=== PATIENT | male | born 1980 | race Hispanic/Latino ===

== ENCOUNTER 2018-01-18 14:01 | Observation (INO) | payer SELFPAY ==
[~2018-01-18 14:01] MED LIST: ISOVUE-370 76%-LOCM 1 ML ONE
[2018-01-18] MEDS ORDERED: Lorazepam 2 MG/ML VIAL ONE (14:40)
[2018-01-18 14:46] LABS: #Lymphocytes 2.2 thou/uL (1.20-3.40); #Monocytes 0.5 thou/uL (0.11-0.59); #Neutrophils 5.1 thou/uL (1.40-6.50); %Basophils 0.3 % (0.0-1.0); %Eosinophils 0.5 % (0.0-10.0); %Lymphocytes 27.8 % (21.0-51.0); %Neutrophils 65.5 % (42.0-75.0); Hemoglobin 15.7 g/dL (14.0-18.0); Mean Corpuscular HGB CONC 34.5 g/dL (32.0-36.0); Mean Corpuscular Hemoglobin 31.4 pg (27.0-31.0); Mean Corpuscular Volume 91.1 fl (80.0-94.0); Mean Platelet Volume 7.6 fL (7.4-10.4); Platelet Count 197 thou/uL (130-400); RBC Distribution Width 11.5 % (11.5-14.5); Red Blood Cell (RBC) Count 5.01 mill/uL (4.70-6.10); White Blood Cell (WBC) Count 7.8 thou/uL (4.8-10.8)
[2018-01-18 14:48] LABS: Bilirubin Negative (Negative); Blood, Urine Negative (Negative); Clarity CLEAR (Clear); Glucose, Urine (Dipstick) >=1000 mg/dL (Negative); Leukocyte Negative (Negative); Nitrite Negative (Negative); Protein, Urine (Dipstick) Negative (Neg-Trace); Specific Gravity, Urine 1.035 (1.002-1.036); Urobilinogen 0.2 mg/dL (0.2-1.0)
[2018-01-18 14:54] LABS: ALT (SGPT) 210 U/L (8-55); AST (SGOT) 106 U/L (5-34); Albumin 4.3 g/dL (3.5-5.0); Alkaline Phosphatase 176 U/L (40-150); Anion Gap 18 mmol/L (10-20); BUN (Urea Nitrogen) 11 mg/dL (8.9-20.6); Bilirubin, Total 0.5 mg/dL (0.2-1.2); CK (CPK) 77 U/L (30-200); Calc. Creatinine Clearance 0 mL/min (70-130); Calcium 9.4 mg/dL (7.8-10.44); Carbon Dioxide 23 mmol/L (22-29); Chloride 98 mmol/L (98-107); Estimated GFR-MDRD 88; Globulin 4.1 g/dL (2.4-3.5); Glucose 502 mg/dL (70-105); Potassium 3.9 mmol/L (3.5-5.1); Protein, Total 8.4 g/dL (6.0-8.3); Sodium 135 mmol/L (136-145)
[2018-01-18 14:59] LABS: CKMB 0.7 ng/mL (0-6.6); Troponin I Less than 0.010 ng/mL (< 0.028)
[2018-01-18] MEDS ORDERED: Insulin Regular 300 UNITS/3 ML VIAL ONE (16:04)
--- NOTE | 2018-01-18 16:40 | RAD ---
PORTABLE CHEST 1 VIEW: Date: 01/18/18 Time: 1512 hours HISTORY: Chest pain. FINDINGS: The cardiomediastinum is normal. The lungs are clear. The bony thorax is unremarkable. IMPRESSION: Normal exam. POS: [facility]
[2018-01-18] MEDS ORDERED: Acetaminophen 650 MG Suppository PR PRN (18:29)
[2018-01-18] MEDS ORDERED: Nitroglycerin 0.4 MG TAB (25 Tab Bottle) PO PRN (18:29)
[2018-01-18] MEDS ORDERED: Bisacodyl 5 MG TAB PO PRN (18:29)
[2018-01-18] MEDS ORDERED: Acetaminophen 325 MG TAB PO PRN ×2 (18:29→18:47)
[2018-01-18] MEDS ORDERED: HumaLOG 300 UNITS/3 ML VIAL SC PRN (18:29)
[2018-01-18] MEDS ORDERED: Dextrose 50% Abboject 50 ML SYRINGE SLOW IVP PRN (18:29)
[2018-01-18] MEDS ORDERED: Dextrose 5% in Water 1,000 ML IV PRN (18:29)
[2018-01-18] MEDS ORDERED: Ondansetron PF 4 MG/2 ML Vial IVP PRN (18:47)
[2018-01-18] MEDS ORDERED: Ondansetron ODT 4 MG TAB SL PRN (18:47)
[2018-01-18 18:52] LABS: Hemoglobin A1c 13.6 % (4.0-6.0)
--- NOTE | 2018-01-18 19:02 | HP ---
PRIMARY CARE PROVIDER: None. CHIEF COMPLAINT: Chest pain. HISTORY OF PRESENT ILLNESS: Mr. Neena Fernández is a pleasant 38-year-old gentleman who was seen at [facility] on 01/18/2018. He reports that yesterday he developed left-sided ches t pain. He describes it as a pressure-like sensation, total 2/10, accompanied by shortness of breath , on and off, no known aggravating or relieving factor, nonexertional and nonpleuritic. He denies thomas ving similar chest pain in the past. He denies having any cough, fevers, chills, lightheadedness, na usea or vomiting. He is a diabetic and was previously on metformin, but stopped because he could not afford the medicat ions. REVIEW OF SYSTEMS: The following complete review of systems was negative, unless otherwise mentioned in the HPI or below: Constitutional: Weight loss or gain, ability to conduct usual activities. Skin: Rash, itching. Eyes: Double vision, pain. ENT/Mouth: Nose bleeding, neck stiffness, pain, tenderness. Cardiovascular: Palpitations, dyspnea on exertion, orthopnea. Respiratory: Shortness of breath, wheezing, cough, hemoptysis, fever or night sweats. Gastrointestinal: Poor appetite, abdominal pain, heartburn, nausea, vomiting, constipation, or diarrhea. Genitourinary: Urgency, frequency, dysuria, nocturia. Musculoskeletal: Pain, swelling. Neurologic/Psychiatric: Anxiety, depression. Allergy/Immunologic: Skin rash, bleeding tendency. PAST MEDICAL HISTORY: Diabetes mellitus. PAST SURGICAL HISTORY: None. SOCIAL HISTORY: The patient denies tobacco use, alcohol use or recreational drug use. FAMILY HISTORY: Significant for myocardial infarction in his brother. ALLERGIES: No known drug allergies. CURRENT MEDICATIONS: None. PHYSICAL EXAMINATION: GENERAL: Mr. Neena Fernández is awake and alert, not in acute distress. VITAL SIGNS: Blood pressure is 159/101, pulse is 108, his breathing at rate of 10 and saturating 99% on room air. He is afebrile. EYES: No scleral icterus. No conjunctival pallor. ENT: Moist mucosal membranes, no oropharyngeal erythema or exudates. NECK: Supple, nontender, normal range of movement. Trachea is midline. RESPIRATORY: Accessory muscles of breathing are not active. Chest wall movements are symmetric bila terally. LUNGS: Clear to auscultation without wheeze, rhonchi or crepitations. CARDIOVASCULAR: S1 and S2 are heard, regular. Peripheral pulses palpable. No pericardial rub. No carotid bruit. ABDOMEN: Soft, nontender, bowel sounds are heard, no hepatomegaly, no splenomegaly. NEUROLOGIC: Cranial nerves II-XII intact. Deep tendon reflexes 2+. MUSCULOSKELETAL: Power is 5/5 in all 4 extremities. Normal range of movement at all major extremity joints. PSYCHIATRIC: Normal mood and normal affect, the patient is oriented to person, place and time. LYMPHATIC: No cervical lymphadenopathy. SKIN: No rashes or subcutaneous nodules. LABORATORY DATA: Mr. Neena Fernández's labs and investigations were reviewed. I reviewed his electroca rdiogram, which shows sinus tachycardia. I also reviewed his chest x-ray, which does not show any pu lmonary infiltrates. He has an unremarkable CBC, decreased sodium of 135, normal potassium, normal c reatinine, elevated AST of 106, elevated ALT of 210, elevated alkaline phosphatase of 176, normal tot al bilirubin, normal creatinine kinase, troponin I less than 0.010, elevated serum total protein of 8 .4, normal albumin of 4.3, urinalysis is positive for glucose and trace ketones, and toxicology showi ng mildly elevated beta hydroxybutyrate. ASSESSMENT AND PLAN: Mr. Neena Fernández is a pleasant 38-year-old gentleman who was seen at [facility] on 01/18/2018. His problem list includes: 1. Chest pain: The etiology is unclear. He has significant risk factors for acute coronary syndrom e. He will be admitted to the hospital and monitored on telemetry. We will recheck his troponin. H is first troponin I is normal. 2. Sinus tachycardia: He continues to have sinus tachycardia. We will rule out pulmonary embolism with CT angiogram of the chest. 3. Abnormal liver function tests. Recheck liver profile, check abdominal ultrasound. 4. Diabetes mellitus. The patient is noncompliant. Start him on Accu-Cheks, insulin sliding scale, glyburide. Many thanks for allowing me to participate in your patient's care. Please feel free to contact me wi th any questions or concerns. LEVEL OF RISK: High. LEVEL OF COMPLEXITY: High.
[2018-01-18] MEDS ORDERED: FLU VACC QS2017-18 36 mo. & older 0.5 ML SYRINGE IM ONE (19:30)
[2018-01-18 19:31] LABS: Troponin I Less than 0.010 ng/mL (< 0.028)
--- NOTE | 2018-01-18 20:12 | CT ---
CT ANGIO CHEST WITH IV CONTRAST: Date: 01/18/18 Multiple axial tomograms obtained through chest with pulmonary angio enhancement and protocol with mu ltiplanar reconstruction and 3D postprocessing. HISTORY: Right chest pain. Shortness of breath. FINDINGS: Pulmonary arteries show suboptimal opacification. There is no evidence of proximal pulmonary embolus. Subsegmental emboli cannot be excluded on this study. No evidence of thoracic aortic dissection. Mediastinum is unremarkable. The lung butler are clear. No infiltrate or effusion. IMPRESSION: Suboptimal pulmonary angio study due to suboptimal opacification of pulmonary arteries. No large prox imal embolus identified on this exam. If there is strong clinical suspicion, consider further evaluat ion with VQ scan. POS: [facility]
[2018-01-18] MEDS: Sodium Chloride 0.9% 1,000 ML IV SCH (21:01)
[2018-01-18 21:18] VITALS: BMI 27.7
[2018-01-18 22:32] LABS: Troponin I Less than 0.010 ng/mL (< 0.028)
[2018-01-19 04:55] LABS: #Basophils 0.1 thou/uL (0.0-0.2); #Eosinphils 0.1 thou/uL (0.0-0.7); #Lymphocytes 2.4 thou/uL (1.20-3.40); #Monocytes 0.5 thou/uL (0.11-0.59); #Neutrophils 3.4 thou/uL (1.40-6.50); %Basophils 0.9 % (0.0-1.0); %Eosinophils 0.8 % (0.0-10.0); %Lymphocytes 37.2 % (21.0-51.0); %Monocytes 8.4 % (0.0-10.0); %Neutrophils 52.7 % (42.0-75.0); Hemoglobin 13.8 g/dL (14.0-18.0); Mean Corpuscular HGB CONC 34.5 g/dL (32.0-36.0); Mean Corpuscular Hemoglobin 31.5 pg (27.0-31.0); Mean Corpuscular Volume 91.5 fl (80.0-94.0); Mean Platelet Volume 7.4 fL (7.4-10.4); Platelet Count 184 thou/uL (130-400); RBC Distribution Width 11.3 % (11.5-14.5); Red Blood Cell (RBC) Count 4.39 mill/uL (4.70-6.10); White Blood Cell (WBC) Count 6.5 thou/uL (4.8-10.8)
[2018-01-19 05:09] LABS: Anion Gap 12 mmol/L (10-20); BUN (Urea Nitrogen) 8 mg/dL (8.9-20.6); Calc. Creatinine Clearance 143 mL/min (70-130); Calcium 8.5 mg/dL (7.8-10.44); Carbon Dioxide 25 mmol/L (22-29); Chloride 102 mmol/L (98-107); Estimated GFR-MDRD Greater than 90; Glucose 315 mg/dL (70-105); Potassium 3.2 mmol/L (3.5-5.1); Sodium 136 mmol/L (136-145)
[2018-01-19 05:12] LABS: ALT (SGPT) 144 U/L (8-55); AST (SGOT) 45 U/L (5-34); Albumin 3.7 g/dL (3.5-5.0); Alkaline Phosphatase 115 U/L (40-150); Bilirubin, Direct 0.3 mg/dL (0.1-0.3); Protein, Total 6.6 g/dL (6.0-8.3)
[2018-01-19] MEDS ORDERED: metFORMIN 500 MG TAB PO SCH (08:00)
[2018-01-19] MEDS ORDERED: glyBURIDE 5 MG TAB PO SCH (08:00)
[2018-01-19] MEDS ORDERED: Enoxaparin Sodium 40 MG/0.4 ML SYRINGE SC SCH (09:00)
[2018-01-19] MEDS ORDERED: Aspirin 325 MG TAB PO SCH (09:00)
--- NOTE | 2018-01-19 09:33 | ULT ---
ULTRASOUND ABDOMEN: Date 01/19/18 HISTORY: Abnormal LFTs. FINDINGS: The liver echogenicity is mildly inhomogeneous and mildly increased, likely due to mild fatty infiltr ation. No focal mass or intrahepatic ductal dilatation is seen. No shadowing gallstones, gallbladder wall thickening, or pericholecystic fluid is identified. There is 5.0 mm nonshadowing echogenic focus arising from the wall of the gallbladder without mobility. The common duct measures 4.0 mm in diamet er. The spleen, pancreas, kidneys, and visualized portions of the aorta and IVC appear normal. No cesar e fluid is seen. IMPRESSION: 1. Fatty liver. 2. Gallbladder polyp. POS: [facility]
[2018-01-19] MEDS: Sodium Chloride 0.9% 1,000 ML IV SCH (11:49)
[2018-01-19 12:04] VITALS: BP 172/107; TEMP 98
[2018-01-19] MEDS ORDERED: Potassium Chloride 20 MEQ TAB PO SCH (13:15)
--- NOTE | 2018-01-19 13:27 | DIS ---
DATE OF ADMISSION: 01/18/2018 DATE OF DISCHARGE: 01/19/2018 PRIMARY CARE PROVIDER: None. DISCHARGE DIAGNOSES: 1. Chest pain. 2. Poorly controlled diabetes mellitus. 3. Abnormal liver function tests, improved. CONDITION OF PATIENT AT THE TIME OF DISCHARGE: Stable. I assessed Mr. Neena Fernández on the day of schar. He denies any chest pain or shortness of breath. Vital signs are stable. S1 and S2 are he tania, regular. Lungs are clear to auscultation bilaterally. HOSPITAL COURSE: Mr. Neena Fernández was admitted to [facility] on observation s tatus on 01/18/2018 for chest discomfort. He also had an elevated D-dimer. CT angiogram of [facility] t on 01/18/2018 was suboptimal pulmonary angio study. No large proximal embolus was identified on th e exam. He went onto have a nuclear stress test on 01/19/2018. Preliminary report indicates a vickie l stress test with ejection fraction of 70%. He also had poorly controlled diabetes mellitus secondary to noncompliance with medications. Hemoglo bin A1c during this hospitalization was 13.6. He has been started on glyburide and metformin. He also had abnormal liver function test, which improved by the day of discharge. He had an abdomina l ultrasound which showed gallbladder polyp and fatty liver. He continued to improve clinically. Chest pain resolved. He is being discharged home in stable cond ition and advised to follow up with primary care provider in 3-5 days. DISCHARGE MEDICATIONS: Include glyburide 5 mg daily and metformin 500 mg 2 times a day to be started on 01/21/2018. LABORATORY DATA: On the day of discharge, he has sodium 136, potassium 3.2, which is being replaced, total bilirubin 1.0, AST 45 decreased from 106 from previous day. ALT 144, decreased from 210 the p revious day, normal alkaline phosphatase of 115, decreased from 176 on 01/18/2018, white count 6,500, hemoglobin 13.8, and platelet count 184,000. DISCHARGE DESTINATION: Home.
--- NOTE | 2018-01-19 14:42 | NM ---
NUCLEAR MEDICINE CARDIAC STRESS TEST WITH EJECTION FRACTION: HISTORY: Chest pain. TECHNIQUE: Stress and rest was performed after the intravenous administration of 31 and 9.1 mCi technetium-99m s estamibi intravenously, respectively. FINDINGS: No scar or ischemia. Normal wall motion. No dyskinesia. Normal ejection fraction calculated at 70%. IMPRESSION: Normal nuclear medicine cardiac stress test and ejection fraction. POS: [facility]
[2018-01-19] MEDS ORDERED: Regadenoson 0.4 MG/5 ML SYRINGE ONE (15:24)
--- NOTE | 2018-01-24 13:22 | EKG ---
Test Reason : Blood Pressure : / mmHG Vent. Rate : 114 BPM Atrial Rate : 114 BPM P-R Int : 158 ms QRS Dur : 084 ms QT Int : 334 ms P-R-T Axes : 060 -50 040 degrees QTc Int : 460 ms Sinus tachycardia Possible Left atrial enlargement Left axis deviation Pulmonary disease pattern Abnormal ECG Confirmed by ARLETTE GOLDSMITH ([id number]), editor publications JENNIFER NGUYEN ([id number]) on 01/24/2018 1:22:34 PM Referred By: Confirmed By:ARLETTE GOLDSMITH
--- NOTE | 2018-03-03 13:36 | STRESS ---
Acquisition Time: 2018-01-19 09:58:12 Total Exercise Time: 00:01:00 Test Indications: CHEST PAIN Medications: Protocol: LEXISCAN Max HR: 131 BPM 71% of Pred: 182 BPM Max BP: 156/082 mmHG Max Work Load: 1.0 METS RESTING ECG: NORMAL SINUS RHYTHM AT 64 BPM SYMPTOMS: CHEST PAIN, DYSPNEA, HEADACHE NORMAL BP RESPONSE ECTOPY: NONE ECG STRESS: NO SIGNIFICANT CHANGES INTERPRETATION: INDETEMINATE ECG/AWAIT NUCLEAR IMAGES FOR DEFINITIVE DIAGNOSIS COMMENTS: DIFFUSE T-WAVE INVERSION WITH LEXISCAN INFUSION Confirmed by GARFIELD OMNROY ([id number]) on 03/03/2018 1:35:52 PM Referred By: MD Elsy GUEVARA Confirmed By:GARFIELD MONROY
== END 2018-01-19 15:13 | disposition home or self-care (01) ==
LOC: ERS 14:01 → 2SW 18:47
PROVIDERS: ADMIT Internal Medicine; ATTEND Internal Medicine
DX: R07.89 Other chest pain (principal); E11.65 Type 2 diabetes mellitus with hyperglycemia; R94.5 Abnormal results of liver function studies; R00.0 Tachycardia, unspecified; Z91.14 Patient's other noncompliance with medication regimen; Z82.49 Family history of ischemic heart disease and other diseases of the circulatory system
CPT/HCPCS: 36415; 36416; 71045; 71275; 76700; 78452; 80048; 80053; 80076; 81003; 82010; 82550; 82553; 83036; 84484; 85025; 85379; 90471; 90682; 90732; 93005; 93017; 96361; 96372; 96374; A9500; G0008; G0009; G0378; J1650; J1815; J2060; J2785; Q2036

== ENCOUNTER 2020-01-16 14:00 | Emergency (ER) | payer SELFPAY ==
--- NOTE | 2020-01-16 14:40 | RAD ---
EXAM: Chest one view: HISTORY: Elevated serum glucose tachycardia anxious COMPARISON: 01/18/2018 FINDINGS: Heart size: Within normal limits. Lungs: Clear of acute process. No evidence for confluent pneumonia, pleural effusion, acute edema, or pneumothorax, or other signifi cant acute process. IMPRESSION: No significant acute intrathoracic disease. Stable exam.
[2020-01-16 14:43] LABS: #Eosinphils 0.1 thou/uL (0.0-0.7); #Lymphocytes 1.5 thou/uL (1.20-3.40); #Monocytes 0.4 thou/uL (0.11-0.59); #Neutrophils 3.3 thou/uL (1.40-6.50); %Basophils 0.7 % (0.0-1.0); %Eosinophils 1.1 % (0.0-10.0); %Monocytes 7.9 % (0.0-10.0); %Neutrophils 62.4 % (42.0-75.0); Hemoglobin 14.8 g/dL (14.0-18.0); Mean Corpuscular HGB CONC 35.6 g/dL (32.0-36.0); Mean Corpuscular Hemoglobin 32.2 pg (27.0-31.0); Mean Corpuscular Volume 90.7 fL (78.0-98.0); Mean Platelet Volume 7.8 fL (7.4-10.4); Platelet Count 191 thou/uL (130-400); RBC Distribution Width 11.8 % (11.5-14.5); White Blood Cell (WBC) Count 5.3 thou/uL (4.8-10.8)
[2020-01-16 15:05] LABS: ALT (SGPT) 80 U/L (8-55); AST (SGOT) 63 U/L (5-34); Albumin 4.3 g/dL (3.5-5.0); Alkaline Phosphatase 158 U/L (40-110); Anion Gap 17 mmol/L (10-20); BUN (Urea Nitrogen) 11 mg/dL (8.9-20.6); Bilirubin, Total 0.8 mg/dL (0.2-1.2); CK (CPK) 116 U/L (30-200); Calc. Creatinine Clearance 0 mL/min (70-130); Carbon Dioxide 21 mmol/L (22-29); Chloride 104 mmol/L (98-107); Estimated GFR-MDRD Greater than 90; Globulin 3.8 g/dL (2.4-3.5); Glucose 460 mg/dL (70-105); Lipase 177 U/L (8-78); Potassium 3.8 mmol/L (3.5-5.1); Protein, Total 8.1 g/dL (6.0-8.3); Sodium 138 mmol/L (136-145)
== END 2020-01-16 15:24 | disposition home or self-care (01) ==
LOC: ERS 14:00
DX: R00.2 Palpitations (principal); E11.9 Type 2 diabetes mellitus without complications; E78.5 Hyperlipidemia, unspecified; I10 Essential (primary) hypertension; F41.9 Anxiety disorder, unspecified; Z79.84 Long term (current) use of oral hypoglycemic drugs
CPT/HCPCS: 36415; 36416; 71045; 80053; 82550; 83690; 84484; 85025; 93005

== ENCOUNTER 2020-02-09 02:25 | Emergency (ER) | payer SELFPAY ==
[2020-02-09] MEDS ORDERED: Aspirin Chewable 81 MG TAB ONE (02:41)
[2020-02-09 02:54] LABS: #Basophils 0.1 thou/uL (0.0-0.2); #Eosinphils 0.2 thou/uL (0.0-0.7); #Lymphocytes 2.3 thou/uL (1.20-3.40); #Monocytes 0.5 thou/uL (0.11-0.59); #Neutrophils 3.3 thou/uL (1.40-6.50); %Basophils 1.2 % (0.0-1.0); %Eosinophils 2.4 % (0.0-10.0); %Lymphocytes 35.6 % (21.0-51.0); %Neutrophils 52.7 % (42.0-75.0); Hemoglobin 14.9 g/dL (14.0-18.0); Mean Corpuscular HGB CONC 34.7 g/dL (32.0-36.0); Mean Corpuscular Hemoglobin 31.1 pg (27.0-31.0); Mean Corpuscular Volume 89.5 fL (78.0-98.0); Mean Platelet Volume 7.6 fL (7.4-10.4); Platelet Count 184 thou/uL (130-400); RBC Distribution Width 11.3 % (11.5-14.5); Red Blood Cell (RBC) Count 4.78 mill/uL (4.70-6.10); White Blood Cell (WBC) Count 6.3 thou/uL (4.8-10.8)
[2020-02-09 03:16] LABS: ALT (SGPT) 42 U/L (8-55); AST (SGOT) 31 U/L (5-34); Albumin 4.3 g/dL (3.5-5.0); Alkaline Phosphatase 124 U/L (40-110); Anion Gap 13 mmol/L (10-20); BUN (Urea Nitrogen) 8 mg/dL (8.9-20.6); Bilirubin, Total 0.9 mg/dL (0.2-1.2); CK (CPK) 73 U/L (30-200); Calc. Creatinine Clearance 0 mL/min (70-130); Calcium 9.7 mg/dL (7.8-10.44); Carbon Dioxide 26 mmol/L (22-29); Chloride 101 mmol/L (98-107); Estimated GFR-MDRD Greater than 90; Globulin 3.4 g/dL (2.4-3.5); Glucose 371 mg/dL (70-105); Lipase 54 U/L (8-78); Potassium 3.4 mmol/L (3.5-5.1); Protein, Total 7.7 g/dL (6.0-8.3); Sodium 137 mmol/L (136-145)
--- NOTE | 2020-02-09 07:33 | RAD ---
EXAM: Single view of the chest HISTORY: Chest pain COMPARISON: 01/16/2020 FINDINGS: Single view of the chest shows a normal sized cardiomediastinal silhouette. There is no sherri dence of consolidation, mass, or pleural effusion. The bones are unremarkable. IMPRESSION: No evidence of acute cardiopulmonary disease
--- NOTE | 2020-02-12 09:58 | EKG ---
Test Reason : Blood Pressure : / mmHG Vent. Rate : 073 BPM Atrial Rate : 073 BPM P-R Int : 150 ms QRS Dur : 098 ms QT Int : 388 ms P-R-T Axes : 047 -29 031 degrees QTc Int : 427 ms Normal sinus rhythm Normal ECG Confirmed by NAHEED TOUSSAINT M.D. ([id number]), video effects editor JENNIFER NGUYEN ([id number]) on 02/12/2020 9:57:54 AM Referred By: Confirmed By:NAHEED TOUSSAINT M.D.
== END 2020-02-09 06:02 | disposition home or self-care (01) ==
LOC: ERS 02:25
DX: R07.9 Chest pain, unspecified (principal); E11.65 Type 2 diabetes mellitus with hyperglycemia; E78.5 Hyperlipidemia, unspecified; I10 Essential (primary) hypertension; F41.9 Anxiety disorder, unspecified; E78.00 Pure hypercholesterolemia, unspecified
CPT/HCPCS: 36415; 36416; 71045; 80053; 82550; 83690; 84484; 85025; 93005; 96360